=== PATIENT | male | born 1950 | race Caucasian/White ===

== ENCOUNTER 2023-01-30 22:30 | Outpatient (CLI) | payer OTHER, MEDICARE, SELFPAY ==
[2023-01-31 03:09] LABS: Blood Urea Nitrogen 19 mg/dL (9-20); Calcium 8.6 mg/dL (8.4-10.2); Carbon Dioxide > 40 mmol/L (22-30); Estimated Glomerular Filt Rate > 60; Glucose 119 mg/dL (65-110)
[2023-01-31 03:18] LABS: Chloride 96 mmol/L (98-107); Potassium 3.6 mmol/L (3.4-5.0); Sodium 141 mmol/L (137-145)
== END 2023-01-30 22:31 | disposition home or self-care (01) ==
LOC: ANHLAB 01-31 02:34
DX: J44.9 Chronic obstructive pulmonary disease, unspecified (principal); I10 Essential (primary) hypertension
CPT/HCPCS: 36415; 80048